=== PATIENT | male | born 1980 | race Caucasian/White ===

== ENCOUNTER 2022-05-01 13:08 | Inpatient (IN) | payer MEDICAID ==
[~2022-05-01] VITALS: Ht 182.9 cm; Wt 85.7 kg
[2022-05-01] MEDS ORDERED: IOHEXOL-350 100 ML BOTTLE ONE (13:46)
[2022-05-01] MEDS ORDERED: ONDANSETRON HCL 4MG/2ML INJ IV ONE (14:45)
[2022-05-01] MEDS ORDERED: ASPIRIN 81MG TABLET PO ONE (14:45)
[2022-05-01] MEDS ORDERED: CLONIDINE 0.1MG TABLET PO ONE (14:45)
[2022-05-01] MEDS ORDERED: CLOPIDOGREL 75MG TABLET PO ONE (14:45)
[2022-05-01 14:46] LABS: BASOPHILS % 0.7 % (0.0-2.0); EOSINOPHILS % 0.8 % (0.0-5.0); HEMATOCRIT. 41.2 % (42.0-52.0); HEMOGLOBIN. 13.9 g/dL (14.0-18.0); LYMPHOCYTES % 11.9 % (20.0-50.0); MEAN CORPUSCULAR HEMOGLOBIN 29.6 pg (28.0-32.0); MEAN CORPUSCULAR VOLUME 87.7 fL (80.0-94.0); MEAN PLATELET VOLUME 7.1 fl (7.4-10.4); MONOCYTES % 4.6 % (2.0-8.0); PLATELET 426 x1000/uL (130-400); RED CELL DISTRIBUTION WIDTH 15.4 % (11.6-14.6)
[2022-05-01 14:55] LABS: PROTHROMBIN TIME 10.8 sec (9.6-11.0)
[2022-05-01 15:04] LABS: CHLORIDE 100 mEq/L (98-107)
[2022-05-01 15:15] LABS: ETHANOL BLOOD < 10 mg/dL; LDL CHOLESTEROL 98 mg/dL (5-100)
[2022-05-01] MEDS ORDERED: ONDANSETRON HCL 4MG/2ML INJ IV NR (16:45)
[2022-05-01] MEDS ORDERED: CLOPIDOGREL 75MG TABLET PO NR (16:45)
[2022-05-01] MEDS ORDERED: CLONIDINE 0.1MG TABLET PO NR (16:45)
[2022-05-01] MEDS ORDERED: ASPIRIN 81MG TABLET PO NR (16:45)
[2022-05-01 18:09] LABS: CLARITY URINE CLEAR (CLEAR); COLOR URINE YELLOW (YELLOW); KETONES URINE NEGATIVE (NEGATIVE); LEUKOCYTE ESTERASE URINE NEGATIVE (NEGATIVE); NITRITE URINE NEGATIVE (NEGATIVE); OCCULT BLOOD URINE NEGATIVE (NEGATIVE); PROTEIN URINE NEGATIVE (NEGATIVE); SPECIFIC GRAVITY URINE 1.017 (1.005-1.030); UROBILINOGEN URINE 0.2 E.U./dL (0.2-1.0)
[2022-05-01 18:48] LABS: *AMPHETAMINES SCREEN URINE PRESUMTIVE POSITIVE (NEGATIVE); *BARBITURATES SCREEN URINE NEGATIVE (NEGATIVE); *BENZODIAZEPINES SCREEN URINE NEGATIVE (NEGATIVE); *COCAINE SCREEN URINE NEGATIVE (NEGATIVE); CANNABINOID URINE SCREEN PRESUMTIVE POSITIVE (NEGATIVE); METHADONE URINE SCREEN NEGATIVE (NEGATIVE); OPIATES URINE SCREEN NEGATIVE (NEGATIVE); PHENCYCLIDINE URINE SCREEN NEGATIVE (NEGATIVE)
[2022-05-01] MEDS ORDERED: SODIUM CHLORIDE 0.9% 1,000 ML IV ONE (20:30)
[2022-05-01] MEDS ORDERED: DEXTROSE 50% WATER 50ML SYRINGE IV PRN (23:00)
[2022-05-01] MEDS ORDERED: CLONIDINE 0.1MG TABLET PO PRN (23:00)
[2022-05-01 23:56] VITALS: BP 140/75
[2022-05-02 00:01] VITALS: BP 140/78
[2022-05-02 00:28] VITALS: BP 154/78
[2022-05-02 04:00] VITALS: BP 134/74
[2022-05-02] MEDS: INSULIN LISPRO 100 UNITS/ML SUBCUT SCH ×4 (06:42→20:59)
[2022-05-02] MEDS: BLOOD SUGAR DIAGNOSTIC STRIP TEST SCH ×4 (06:42→20:55)
[2022-05-02 06:59] LABS: BASOPHILS % 0.6 % (0.0-2.0); EOSINOPHILS % 1.2 % (0.0-5.0); HEMATOCRIT. 40.3 % (42.0-52.0); HEMOGLOBIN. 13.7 g/dL (14.0-18.0); MEAN CORPUSCULAR HEMOGLOBIN 29.3 pg (28.0-32.0); MEAN CORPUSCULAR VOLUME 86.3 fL (80.0-94.0); MEAN PLATELET VOLUME 7.1 fl (7.4-10.4); MONOCYTES % 5.9 % (2.0-8.0); NEUTROPHILS % 76.3 % (40.0-76.0); PLATELET 417 x1000/uL (130-400); RED BLOOD CELL COUNT 4.68 mill/uL (4.7-6.1); RED CELL DISTRIBUTION WIDTH 15.5 % (11.6-14.6)
[2022-05-02 09:05] VITALS: BP 135/87
[2022-05-02] MEDS ORDERED: LORAZEPAM 1MG TABLET PO NR (10:03)
[2022-05-02] MEDS: ASPIRIN 81MG TABLET PO SCH (10:05)
[2022-05-02] MEDS: ENOXAPARIN 40MG/0.4ML SYR SUBCUT SCH (10:06)
[2022-05-02] MEDS ORDERED: NALOXONE HCL 0.4MG/ML VIAL IV PRN (10:15)
[2022-05-02 20:00] VITALS: BP 143/88
[2022-05-02] MEDS ORDERED: ATORVASTATIN CALCIUM 40MG TABLET PO SCH (21:00)
[2022-05-03] VITALS: BP 133/79
[2022-05-03] MEDS: HYDROCODONE/ACETAMINOPHEN 5/325MG TABLET PO PRN ×2 (03:08→08:56)
[2022-05-03 03:52] VITALS: BP 134/84
[2022-05-03] MEDS: BLOOD SUGAR DIAGNOSTIC STRIP TEST SCH ×2 (06:47→13:09)
[2022-05-03] MEDS: INSULIN LISPRO 100 UNITS/ML SUBCUT SCH ×2 (06:53→12:50)
[2022-05-03 08:00] VITALS: BP 144/99
[2022-05-03] MEDS: ASPIRIN 81MG TABLET PO SCH (08:55)
[2022-05-03] MEDS: ENOXAPARIN 40MG/0.4ML SYR SUBCUT SCH (08:56)
[2022-05-03] MEDS ORDERED: CLOPIDOGREL 75MG TABLET PO SCH (09:00)
[2022-05-03 12:00] VITALS: BP 98/86
[2022-05-03] MEDS ORDERED: ASPI-1160 PO (13:41)
[2022-05-03] MEDS ORDERED: CLOP75TA15 PO (13:41)
[2022-05-03] MEDS ORDERED: LIP40 PO (13:41)
[2022-05-03 15:02] VITALS: BP 144/88
== END 2022-05-03 15:53 | disposition home or self-care (01) | DRG 812 ==
LOC: ER 13:08 → 6WST 19:00 → EDBEDREQ 19:06 → EDBEDREQSVC 19:06 → ENRESERV 20:03
PROVIDERS: ADMIT Internal Medicine; ATTEND Internal Medicine
DX: T40.411A Poisoning by fentanyl or fentanyl analogs, accidental (unintentional), initial encounter (principal); G92.8 Other toxic encephalopathy; K85.90 Acute pancreatitis without necrosis or infection, unspecified; I69.354 Hemiplegia and hemiparesis following cerebral infarction affecting left non-dominant side; E11.9 Type 2 diabetes mellitus without complications; F11.13 Opioid abuse with withdrawal; F15.13 Other stimulant abuse with withdrawal; I10 Essential (primary) hypertension; T43.651A Poisoning by methamphetamines accidental (unintentional), initial encounter; Y92.89 Other specified places as the place of occurrence of the external cause; Z59.01 Sheltered homelessness
CPT/HCPCS: 36415; 70496; 70498; 70551; 71045; 80053; 80061; 80305; 80320; 81003; 82962; 83036; 83721; 85025; 93005; 93306; 99291; J1650; J2405; J7030; Q9967; G0480